=== PATIENT | male | born 1965 | race Caucasian/White ===

== ENCOUNTER 2018-02-28 11:00 | Emergency (ER) | payer OTHER, MEDICARE ==
[~2018-02-28] VITALS: Ht 152.4 cm; Wt 78.5 kg
--- NOTE | 2018-02-28 12:04 | ED MVC/FALL/TRAUMA COMPLAINT ---
History of Present Illness General Chief Complaint: Fall Stated Complaint: FALL/HEAD STRIKE Source: patient Exam Limitations: physical impairment Vital Signs & Intake/Output Vital Signs & Intake/Output Vital Signs Date Time Temp Pulse Resp B/P B/P Pulse O2 O2 Flow FiO2 Mean Ox Delivery Rate 02/28 1327 97.7 63 19 148/65 98 Room Air 02/28 1135 Room Air 02/28 1126 98.0 64 18 126/75 98 Room Air Allergies Coded Allergies: NO KNOWN ALLERGIES (10/08/12) Triage Note: RECEIVED 52 YO MALE WITH HX OF DOWNS SYNDROME, LIVES WITH SISTER. PT WAS IS IN A DAY PROGRAM AND HE FELL BACKWARDS GETTING ON A BUS, FELL BACKWARDS HITTING THE BACK OF HIS HEAD. + ABRASION. NO LOC, NAUSEA OR VOMITING. PT FELL 2 STEPS., + ABRASION NOT ACTIVELY BLEEDING. Triage Nurses Notes Reviewed? yes Onset: Abrupt Duration: minute(s):, constant Timing: recent history Severity: mild Injuries/Fall Location: head, face Method of Injury: fall Loss of Consciousness: no loss of consciousness HPI: 52-year-old male comes into the emergency room for further evaluation of falling back off of a van and head injury. Patient was climbing into the car and fell backwards and hit his head. He on the cement. Abrasion. No loss of consciousness. No vomiting. No anticoagulants. Comes in for further evaluation. Denies any neck pain. Denies any pain or injury anywhere else. History of Down syndrome but patient is able to communicate well. (Kimani Sloan) Past History Travel History Traveled to [place] past 21 day No Medical History Any Pertinent Medical History? see below for history Neurological: MILD MENTAL RETARDATION EENT: NONE Cardiovascular: hyperlipidemia Respiratory: NONE Gastrointestinal: NONE Hepatic: NONE Renal: NONE Musculoskeletal: NONE Psychiatric: NONE Endocrine: hypothyroidism Blood Disorders: NONE Cancer(s): NONE Tetanus Vaccine: 02/28/18 Surgical History Surgical History: non-contributory Psychosocial History What is your primary language Bulgarian Tobacco Use: Never used Family History Hx Contributory? No (Kimani Sloan) Review of Systems Review of Systems Constitutional: Reports: no symptoms. Eyes: Reports: no symptoms. Ears, Nose, Throat, Mouth: Reports: no symptoms. Respiratory: Reports: no symptoms. Cardiovascular: Reports: no symptoms. Gastrointestinal/Abdominal: Reports: no symptoms. Genitourinary: Reports: no symptoms. Musculoskeletal: Reports: see HPI. Skin: Reports: see HPI. Neurological/Psychological: Reports: see HPI. All Other Systems: Reviewed and Negative (Donaldo QUIÑONEZ,Kimani) Physical Exam Physical Exam General Appearance: well developed/nourished, alert, awake Head: atraumatic, Skin abrasion to posterior scalp, no hematoma Eyes: Bilateral: normal appearance. Ears, Nose, Throat, Mouth: hearing grossly normal, moist mucous membrane Neck: normal inspection, supple, full range of motion Respiratory: no respiratory distress Back: normal inspection Extremities: normal range of motion Neurologic/Psych: awake, alert, oriented x 3 Skin: intact Core Measures ACS in differential dx? No CVA/TIA Diagnosis No Sepsis Present: No Sepsis Focused Exam Completed? No NEXUS Criteria: Negative: neuro deficit, spinal tenderness, altered mental status, intoxication present, distracting injury presen. (Kimani Sloan) Progress Differential Diagnosis: abd injury, C/T/L spine injury, ext injury, ICH, pelvis injury, pnemothorax Plan of Care: Orders Procedure Date/time Status CT HEAD WO IV CONTRAST 02/28 1130 Active Diagnostic Imaging: Viewed by Me: CT Scan. Discussed w/RAD: CT Scan. Radiology Impression: PATIENT: JENNIFER MATOS PRESENT AGE: 52 PATIENT ACCOUNT NO: [id number] : 67 LOCATION: [facility] ORDERING PHYSICIAN: Kimani QUIÑONEZ SERVICE DATE: 02/28/18-1129 EXAM TYPE : CAT - CT HEAD WO IV CONTRAST EXAMINATION: CT HEAD WITHOUT CONTRAST CLINICAL INFORMATION: Fall. Head injury. No loss of consciousness. COMPARISON: TECHNIQUE: Contiguous axial imaging was performed from the skull base to vertex without intravenous administration of contrast. DLP: 623 mGy-cm FINDINGS: There is no evidence of acute intracranial hemorrhage or territorial infarction. No abnormal mass effect or midline shift is seen. Gould to white matter differentiation is well preserved. No extra-axial fluid collections are identified. The ventricles are normal in size. There is no abnormal attenuation within the brain parenchyma. There is scalp swelling and subcutaneous disease edema over the left parietal calvarium near the vertex, likely with a small subgaleal hematoma. The bilateral mastoid air cells are hypertrophic. Cerumen is present in the external auditory canals. There is opacification of the middle ear canals bilaterally. The osseous structures and soft tissues are otherwise normal. The visualized portions of the paranasal sinuses are well aerated. IMPRESSION: 1. No acute intracranial abnormalities. 2. Probable small subgaleal hematoma over the left parietal calvarium near the vertex. No fractures or acute underlying abnormalities. DICTATED BY: Jakob Gonzalez MD DATE/TIME DICTATED:02/28 MANAGER OF ALLIED HEALTH SERVICES:PRISCILA DATE/TIME TRANSCRIBED:02/28/181299 CONFIDENTIAL, DO NOT COPY WITHOUT APPROPRIATE AUTHORIZATION. <Electronically signed in Other Vendor System> SIGNED BY: Jakob Gonzalez MD 02/28/18 1308 Comments: 02/28/2018 3:32:22 PM No evidence of acute trauma. Follow-up with primary care doctor. Return if any concerns worsening symptoms. (Donaldo QUIÑONEZ,Kimani) Departure Departure Disposition: HOME OR SELF CARE Condition: Stable Clinical Impression Primary Impression: Head injury Secondary Impressions: Skin abrasion Referrals: Eileen Sanchez DO (PCP/Family) Additional Instructions: Return if any concerns worsening symptoms. Keep covered with bacitracin and Band-Aid. Please go over all results of today's visit with your primary care doctor. Contact your primary care doctor to let them know you were here in the emergency room. There may be nonspecific findings which may not be related to your visit today here in the emergency room but may require further evaluation and chronic monitoring by your primary care doctor. If you had a laceration today the chance of foreign body always remains. You should follow-up with your primary care doctor for recheck in 3-5 days for a wound check. If you had an x-ray done there is a chance that a fracture could have been missed on initial read and you should follow-up with your primary care doctor for repeat x-rays if symptoms persist. If your blood pressure was elevated here in the emergency room please have rechecked by [facility] primary care doctor within the next 48. If you were prescribed a narcotic here in the emergency room or any type of controlled substances you're not allowed to drive while taking this medication or operate any type of heavy machinery. Narcotics can make you feel lightheaded dizziness nausea and can cause constipation. You may need to cotton picking machine operator a stool softener. Thank you for choosing [facility] emergency room. Please return to the emergency room immediately if you have any other concerns worsening of symptoms. Departure Forms: Customer Survey General Discharge Information Comments 02/28/2018 3:31:22 PM Patient clinically looks well. Patient is in no apparent distress. Patient is nontoxic-appearing. (Donaldo QUIÑONEZ,Kimani) PA/HOME STAGING SPECIALIST Co-Sign Statement Statement: ED Attending supervision documentation- [] I saw and evaluated the patient. I have also reviewed all the pertinent lab results and diagnostic results. I agree with the findings and the plan of care as documented in the PA's/HOME STAGING SPECIALIST's documentation. [X] I have reviewed the ED Record and agree with the PA's/HOME STAGING SPECIALIST's documentation. [] Additions or exceptions (if any) to the PAs/HOME STAGING SPECIALIST's note and plan are summarized below: [] (Ted Schmidt DO)
--- NOTE | 2018-02-28 13:08 | CT SCAN REPORT ---
EXAMINATION: CT HEAD WITHOUT CONTRAST CLINICAL INFORMATION: Fall. Head injury. No loss of consciousness. COMPARISON: 22,008 TECHNIQUE: Contiguous axial imaging was performed from the skull base to vertex without intravenous administration of contrast. DLP: 623 mGy-cm FINDINGS: There is no evidence of acute intracranial hemorrhage or territorial infarction. No abnormal mass effect or midline shift is seen. Gould to white matter differentiation is well preserved. No extra-axial fluid collections are identified. The ventricles are normal in size. There is no abnormal attenuation within the brain parenchyma. There is scalp swelling and subcutaneous disease edema over the left parietal calvarium near the vertex, likely with a small subgaleal hematoma. The bilateral mastoid air cells are hypertrophic. Cerumen is present in the external auditory canals. There is opacification of the middle ear canals bilaterally. The osseous structures and soft tissues are otherwise normal. The visualized portions of the paranasal sinuses are well aerated. IMPRESSION: 1. No acute intracranial abnormalities. 2. Probable small subgaleal hematoma over the left parietal calvarium near the vertex. No fractures or acute underlying abnormalities.
[2018-02-28 13:27] VITALS: BP 148/65
== END 2018-02-28 13:29 ==
LOC: ERH 11:00
DX: S09.90XA Unspecified injury of head, initial encounter (principal); S00.01XA Abrasion of scalp, initial encounter; W19.XXXA Unspecified fall, initial encounter
CPT/HCPCS: 90471; 90714